=== PATIENT | female | born 1950 | race Caucasian/White ===

== ENCOUNTER 2024-06-25 14:26 | Emergency (ER) | payer MEDICARE ==
[~2024-06-25] VITALS: Ht 165.1 cm; Wt 44.1 kg
[2024-06-25] MEDS ORDERED: METH-1164 PO (18:11)
[2024-06-25 18:20] VITALS: BP 138/80; TEMP 96.8; O2SAT 99
== END 2024-06-25 18:22 | disposition home or self-care (01) ==
LOC: M ED 14:26
DX: S13.4XXA Sprain of ligaments of cervical spine, initial encounter (principal); S43.402A Unspecified sprain of left shoulder joint, initial encounter; S00.83XA Contusion of other part of head, initial encounter; W19.XXXA Unspecified fall, initial encounter; R91.1 Solitary pulmonary nodule; M50.321 Other cervical disc degeneration at C4-C5 level; M50.322 Other cervical disc degeneration at C5-C6 level; M50.323 Other cervical disc degeneration at C6-C7 level; M25.78 Osteophyte, vertebrae; Z88.5 Allergy status to narcotic agent; Z79.899 Other long term (current) drug therapy; Y92.009 Unspecified place in unspecified non-institutional (private) residence as the place of occurrence of the external cause; Y93.89 Activity, other specified; Y99.9 Unspecified external cause status